=== PATIENT | male | born 1960 | race Caucasian/White ===

== ENCOUNTER → 2017-12-09 | Outpatient (CLI) | payer OTHER ==
[~2017-12-09] MED LIST: GASTROGRAFIN SOLUTION 30ML (Q9963) As Ordered; GLUCAGON FOR INJ 1 MG VIAL (J1610) As Ordered; ISOVUE-370 76% 100ML VIAL (Q9967) As Ordered; VoLumen 0.1% SUSPENSION 450ML BOTTLE As Ordered
== END ==
LOC: M RAD 07:37
DX: K52.9 Noninfective gastroenteritis and colitis, unspecified (principal)

== ENCOUNTER 2017-12-19 08:07 | Day surgery (SDC) | payer OTHER ==
[2017-12-19] MEDS: NS 1,000 ML IV (09:23)
[2017-12-19] MEDS ORDERED: PROPOFOL 200 MG/20 ML VIAL As Ordered ×2 (09:43→10:06)
[2017-12-19] MEDS ORDERED: LIDOCAINE 2% INJ 100 MG/5 ML SDV (FOR ANES.) As Ordered (09:43)
[2017-12-19 11:00] LABS: BEDSIDE GLUCOSE 89 MG/DL (70-105)
== END 2017-12-19 11:16 | disposition home or self-care (01) ==
LOC: M OPP 08:07
DX: R19.4 Change in bowel habit (principal); K50.90 Crohn's disease, unspecified, without complications; D12.3 Benign neoplasm of transverse colon; D12.4 Benign neoplasm of descending colon; D12.2 Benign neoplasm of ascending colon; D12.0 Benign neoplasm of cecum; D12.5 Benign neoplasm of sigmoid colon; R10.13 Epigastric pain; R12 Heartburn; K22.8 Other specified diseases of esophagus; E11.9 Type 2 diabetes mellitus without complications; K86.9 Disease of pancreas, unspecified; K21.9 Gastro-esophageal reflux disease without esophagitis; M19.90 Unspecified osteoarthritis, unspecified site; M54.2 Cervicalgia; Z79.899 Other long term (current) drug therapy; Z79.84 Long term (current) use of oral hypoglycemic drugs
CPT/HCPCS: 45385

== ENCOUNTER 2019-04-01 07:53 | Day surgery (SDC) | payer OTHER ==
[~2019-04-01] VITALS: Ht 177.8 cm; Wt 91.6 kg
[~2019-04-01 07:53] MED LIST changes: +ATOR1TAB21 PO; +FARX1TAB3; -GASTROGRAFIN SOLUTION 30ML (Q9963) As Ordered; +GLIM2TAB PO; -GLUCAGON FOR INJ 1 MG VIAL (J1610) As Ordered; -ISOVUE-370 76% 100ML VIAL (Q9967) As Ordered; +JANU50TA25 PO; +JARD1TAB3 PO; +LIDOCAINE 2% INJ 100 MG/5 ML SDV (FOR ANES.) As Ordered ONE; +LISI-542 PO; +PANT40TA3 PO; +PROPOFOL 200 MG/20 ML VIAL As Ordered ONE; +SUCR1TAB56; +TRUL0.5I INJ; -VoLumen 0.1% SUSPENSION 450ML BOTTLE As Ordered
[2019-04-01] MEDS ORDERED: NS 1,000 ML IV ONE (08:15)
--- NOTE | 2019-04-01 09:35 | ROOR ---
Patient Name: Ever Fay Procedure Date: 04/01/2019 8:47 AM Date of : 1960 Age: 58 Room: [facility] Gender: Male Note Status: Finalized Procedure: Colonoscopy Indications: High risk colon cancer surveillance: Personal history of colonic polyps, Surveillance: History of numerous (> 10) adenomas on last colonoscopy (< 3 yrs) Providers: Kem MEJIA MD Referring MD: GUNJAN BARNES MD Requesting Provider: Medicines: Monitored Anesthesia Care Complications: No immediate complications. Procedure: Pre-Anesthesia Assessment: - The heart rate, respiratory rate, oxygen saturations, blood pressure, adequacy of pulmonary ventilation, and response to care were monitored throughout the procedure. The Colonoscope was introduced through the anus and advanced to the cecum, identified by appendiceal orifice and ileocecal valve. The colonoscopy was performed without difficulty. The patient tolerated the procedure well. The quality of the bowel preparation was adequate. Findings: The perianal and digital rectal examinations were normal. Three sessile polyps were found in the ascending colon and cecum. The polyps were 3 to 5 mm in size. These polyps were removed with a cold snare. Resection and retrieval were complete. Three semi-sessile polyps were found in the descending colon and splenic flexure. The polyps were 5 to 8 mm in size. These polyps were removed with a cold snare. Resection and retrieval were complete. To prevent bleeding after the polypectomy, two hemostatic clips were successfully placed. There was no bleeding at the end of the procedure. Two sessile polyps were found in the sigmoid colon. The polyps were 3 to 5 mm in size. These polyps were removed with a cold snare. Resection and retrieval were complete. Small Internal Hemorrhoids. The exam was otherwise without abnormality on direct and retroflexion views. Impression: - Three 3 to 5 mm polyps in the ascending colon and in the cecum, removed with a cold snare. Resected and retrieved. - Three 5 to 8 mm polyps in the descending colon and at the splenic flexure, removed with a cold snare. Resected and retrieved. Clips were placed. - Two 3 to 5 mm polyps in the sigmoid colon, removed with a cold snare. Resected and retrieved. - Small Internal Hemorrhoids. - The examination was otherwise normal on direct and retroflexion views. Recommendation: - Repeat colonoscopy in 3 years for surveillance. - No ibuprofen, naproxen, or other non-steroidal anti-inflammatory drugs for 10 days after polyp removal. Kem Mejia MD Kem MEJIA MD 04/01/2019 9:35:03 AM Electronically signed by Kem MEJIA MD Number of Addenda: 0 Note Initiated On: 04/01/2019 8:47 AM Estimated Blood Loss: Estimated blood loss: none.
[2019-04-01 10:11] VITALS: BP 118/72
== END 2019-04-01 10:00 | disposition home or self-care (01) ==
LOC: M OPP 07:53
PROVIDERS: ATTEND Internal Medicine Gastroenterology
DX: Z86.010 Personal history of colon polyps (principal); Z80.0 Family history of malignant neoplasm of digestive organs; Z09 Encounter for follow-up examination after completed treatment for conditions other than malignant neoplasm; D12.0 Benign neoplasm of cecum; D12.4 Benign neoplasm of descending colon; D12.3 Benign neoplasm of transverse colon; K63.5 Polyp of colon; K64.8 Other hemorrhoids; Z79.84 Long term (current) use of oral hypoglycemic drugs; Z79.899 Other long term (current) drug therapy

== ENCOUNTER → 2019-11-11 | Outpatient (CLI) | payer OTHER ==
[~2019-11-11] MED LIST changes: -GLIM2TAB PO; +GLIM2TAB4 PO; -LIDOCAINE 2% INJ 100 MG/5 ML SDV (FOR ANES.) As Ordered ONE; -PROPOFOL 200 MG/20 ML VIAL As Ordered ONE
--- NOTE | 2019-11-11 14:49 | REP ---
REASON: Abdominal pain. PRIORS: None. FINDINGS: Supine and upright views of the abdomen show the intestinal gas pattern to be nonspecific. Gas and stool is seen throughout the colon within the rectosigmoid region. The organ silhouettes insofar as delineated appear unremarkable. No abdominal calcific densities are seen within the abdomen or pelvis. The accompanying single frontal view of the chest shows no free subdiaphragmatic air, cardiomegaly, infiltrates or effusions. There is a moderate of content seen within the colon. Degenerative changes are seen involving the spine and hips. IMPRESSION: Nonspecific intestinal gas pattern. Electronically Signed by Alejandro Vazquez DO 11/11/2019 04:24 P
== END ==
LOC: M RAD 13:47
PROVIDERS: ATTEND Physician Assistant Medical
DX: R10.33 Periumbilical pain (principal)

== ENCOUNTER → 2019-11-13 | Outpatient (REF) | payer OTHER | LOC: M LAB REF 11:00 | PROVIDERS: ATTEND Physician Assistant Medical | DX: R19.7 Diarrhea, unspecified (principal) ==

== ENCOUNTER → 2019-12-20 | Outpatient (REF) | payer OTHER | LOC: M LAB REF 08:38 | PROVIDERS: ATTEND Physician Assistant Medical | DX: R19.7 Diarrhea, unspecified (principal) ==

== ENCOUNTER → 2020-04-30 | Outpatient (REF) | payer OTHER ==
[~2020-04-30] MED LIST changes: +PANT40TA29 PO; -PANT40TA3 PO
== END ==
LOC: M LAB REF 11:39
PROVIDERS: ATTEND Physician Assistant Medical
DX: R19.8 Other specified symptoms and signs involving the digestive system and abdomen (principal)

== ENCOUNTER 2020-06-07 13:59 | Emergency (ER) | payer OTHER ==
[~2020-06-07] VITALS: Ht 180.3 cm; Wt 91.3 kg
[2020-06-07] MEDS ORDERED: NS 1,000 ML IV ONE (14:30)
[2020-06-07 14:55] LABS: BASO % 0.6 % (0.0-1.0); EOS # 0.2 10^3/uL (0.0-0.5); EOS % 2.2 % (0.0-3.0); HEMATOCRIT 45.8 % (42.0-52.0); HEMOGLOBIN 15.2 g/dl (13.5-17.5); LYMPH # 1.7 10^3/uL (1.5-5.0); LYMPH % 23.5 % (24.0-44.0); MEAN CORPUSCULAR HEMOGLOBIN 28.7 pg (27.0-33.0); MEAN CORPUSCULAR HGB CONC 33.2 g/dl (32.0-36.5); MEAN CORPUSCULAR VOLUME 86.4 fl (80.0-96.0); MONO % 13.5 % (0.0-5.0); NEUTROPHILS # 4.3 10^3/uL (1.5-8.5); NEUTROPHILS % 59.9 % (36.0-66.0); PLATELET COUNT, AUTOMATED 310 10^3/uL (150-450); WHITE BLOOD COUNT 7.2 10^3/uL (4.0-10.0)
[2020-06-07] MEDS ORDERED: GASTROGRAFIN SOLUTION 30ML PO SCH (15:00)
[2020-06-07 15:14] LABS: ERYTHROCYTE SEDIMENTATION RATE 10 mm/hr (0-20)
[2020-06-07 15:28] LABS: ALBUMIN 3.9 GM/DL (3.2-5.2); ALT/SGPT 33 U/L (12-78); AMYLASE 49 U/L (25-115); BILIRUBIN,DIRECT 0.1 MG/DL (0.0-0.2); BILIRUBIN,TOTAL 0.5 MG/DL (0.2-1.0); BLOOD UREA NITROGEN 13 MG/DL (7-18); C REACTIVE PROTEIN QUANTITATIV 2.27 MG/DL (0.00-0.30); CALCIUM LEVEL 9.3 MG/DL (8.5-10.1); CARBON DIOXIDE LEVEL 25 MEQ/L (21-32); CHLORIDE LEVEL 104 MEQ/L (98-107); CREATININE FOR GFR 0.72 MG/DL (0.70-1.30); FREE T4 1.45 NG/DL (0.76-1.46); GLOMERULAR FILTRATION RATE > 60.0 (>56); GLUCOSE, FASTING 184 MG/DL (70-100); LIPASE 127 U/L (73-393); POTASSIUM SERUM 3.9 MEQ/L (3.5-5.1); SODIUM LEVEL 135 MEQ/L (136-145); THYROID STIMULATING HORMONE 0.451 uIU/ML (0.358-3.740); TOTAL PROTEIN 7.2 GM/DL (6.4-8.2)
[2020-06-07] MEDS ORDERED: ISOVUE-370 76% 100ML VIAL As Ordered ONE (16:14)
--- NOTE | 2020-06-07 16:59 | REP ---
INDICATION: diffuse abd pain, diarrhea. COMPARISON: 12/09/2017 enterography TECHNIQUE: Oral Gastrografin mixture per our protocol and bolus of 100 mL Isovue 370 scanning through the abdomen and pelvis with coronal and sagittal reconstructions. FINDINGS: CT abdomen: Lung bases are clear. Heart is not enlarged there is no pericardial thickening or effusion. There is no hepatosplenomegaly, focal hepatic or splenic lesion or biliary dilatation. There are few calcifications in the spleen from old granulomatous disease. Gallbladder without calcified stone or mass. Pancreas is unremarkable. The adrenal glands are also normal. Kidneys show function in a symmetric fashion with enhancement. No mass, cyst, stone or hydronephrosis. There is no hydroureter or ureteral stone. Stomach shows retained food and oral contrast but no mass. The abdominal portion of the colon shows a stool throughout without colitis, diverticulitis, stricture or mass. There is a retrocecal appendix which is normal. No inflammatory change seen some mild hyperdensity within it suggesting an appendicolith. No aortic aneurysm or dissection. No periaortic, retroperitoneal or mesenteric pathologic sized lymphadenopathy. Small bowel loops are without dilatation. Oral contrast seen to the proximal the ileum. Some nonspecific thickening of bowel wall of the proximal to mid jejunum. No mesenteric edema. Bone windows show marginal osteophytes throughout lower thoracic and lumbar spine without compression deformity or destructive lesion there is some facet arthropathy in the lower lumbar spine. Visualized lower ribs were intact. No destructive lesion. CT pelvis: The SI joints are partially fused along much of their course. There are marginal osteophytes at the acetabular roof are fairly prominent. Rim osteophyte on the femoral head is seen but small. The iliac bones acetabula E and ischia were otherwise unremarkable. No evidence of fracture AVN of the hips. The distal left colon sigmoid and rectum are without any inflammatory changes. I would note that the sigmoid colon extends up well into the right upper quadrant on to just at the lower pole of the right kidney no colitis or diverticulitis. No stricture or mass. Prostate not grossly enlarged. Bladder well distended. Kidneys show no hydronephrosis and there is no hydroureter. No renal, ureteral or bladder stone. The distal small bowel loops show some thickening of the wall of the and in mucosal enhancement of the distal and terminal ileum which could certainly reflect underlying Crohn disease indicated by history from a previous CT no perforation or abscess on lung window review of all CT slices in the abdomen and pelvis. No ventral or inguinal hernia nor pathologic sized inguinal adenopathy. IMPRESSION: 1. Some nonspecific thickening bowel wall of the distal and terminal ileum without inflammatory changes in the adjacent fat, perforation or abscess. Findings certainly could reflect some mild Crohn disease. 2. Proximal small-bowel loops of jejunum showed nonspecific mild wall thickening in the left upper quadrant. No other significant or acute finding. Appendix is seen and normal, it is retrocecal. <Electronically signed by Guy Mcneal > 06/07/20 [id number]
[2020-06-07 18:25] VITALS: BP 115/71
--- NOTE | 2020-06-12 10:27 | ED PDOC ---
Post-Departure Follow-Up ct abd/p faxed to dr valadez for fu Pro Mcdonald MD Jun 12, 2020 10:27
== END 2020-06-07 18:29 | disposition home or self-care (01) ==
LOC: M ED 13:59
DX: K63.89 Other specified diseases of intestine (principal); E11.9 Type 2 diabetes mellitus without complications; E78.5 Hyperlipidemia, unspecified; K22.70 Barrett's esophagus without dysplasia; E66.9 Obesity, unspecified; Z79.899 Other long term (current) drug therapy
CPT/HCPCS: 36415; 74177; 80048; 80076; 82150; 83605; 83690; 83993; 84439; 84443; 85025; 85652; 86140; 87507; 96360; 99284; Q9963; Q9967

== ENCOUNTER → 2020-07-05 | Outpatient (CLI) | payer OTHER ==
--- NOTE | 2020-07-05 16:43 | REP ---
INDICATION: FOREIGN BODY IN SM INTESTINE. COMPARISON: Acute abdominal series dated 11/11/2019. TECHNIQUE: Supine and upright views of the abdomen, two views. FINDINGS: There is a radiopaque foreign body in the midline of the pelvis having a rectangular shape on plain films measuring 2.0 by 1.2 cm. I cannot determine whether this is in a large bowel loop or a small bowel loop. There is no bowel distention or obstruction. No free subdiaphragmatic air is identified on the upright view. Skeletal structures and soft tissues are otherwise unremarkable. IMPRESSION: Radiopaque foreign body in the midline of the pelvis. <Electronically signed by Tripp Jimenez > 07/05/20 [id number]
== END ==
LOC: M RAD 13:29
PROVIDERS: ATTEND Physician Assistant Medical
DX: T18.3XXA Foreign body in small intestine, initial encounter (principal)

== ENCOUNTER → 2020-07-07 | Outpatient (CLI) | payer OTHER ==
--- NOTE | 2020-07-07 10:36 | REP ---
INDICATION: FOREIGN BODY IN SMALL INTESTINE, SUBSEQUENT ENCOUNTER. An Agile patency capsule was ingested on 04 July 2020. This was still visible on the 2019 study. COMPARISON: Comparison study 05 July 2020.. TECHNIQUE: Two views. FINDINGS: The Agile patency capsule is no longer visible. Bowel gas pattern is unremarkable with formed stool in the ascending and descending colon. Psoas margins are intact. No mass, organomegaly, or pathologic calcification seen. IMPRESSION: The Agile patency capsule which was noted on the previous radiograph has passed in the interval. It is no longer visible. <Electronically signed by Aleksandar Mathews > 07/07/20 [id number]
== END ==
LOC: M RAD 10:04
PROVIDERS: ATTEND Physician Assistant Medical
DX: T18.3XXD Foreign body in small intestine, subsequent encounter (principal)

== ENCOUNTER → 2020-07-18 | Outpatient (CLI) | payer OTHER ==
[~2020-07-18] MED LIST changes: +GLUCAGON INJ 1MG VIAL As Ordered ONE; +ISOVUE-370 76% 100ML VIAL As Ordered ONE; +VoLumen 0.1% SUSPENSION 450ML BOTTLE As Ordered ONE
--- NOTE | 2020-07-18 15:15 | REP ---
INDICATION: ABN FINDINGS DIAG IMAGING F/U CT ABD PAIN DIARRHEA COMPARISON: 06/07/2020 TECHNIQUE: Axial contrast-enhanced images from the lung bases to the pubic symphysis with images obtained in arterial and portal venous phases of enhancement. Low-density oral contrast material was administered prior to imaging. Coronal and sagittal reformations were obtained. 100 cc Isovue 370 intravenous contrast material administered without complication. FINDINGS: The enteric system including stomach, small, and large bowel appears normal. No enteric or colonic wall thickening, pathologic abnormalities, inflammatory stranding, stricture/stenosis, obstruction or perforation is appreciated. No ascites. No significant adenopathy. Liver, spleen, pancreas, gallbladder, bilateral adrenal glands and kidneys are normal. Pelvis demonstrates normal bladder and age-appropriate prostate/seminal vesicles. No ascites. No free air. No intraperitoneal or retroperitoneal adenopathy. Abdominal aorta demonstrates atherosclerotic changes without aneurysm or dissection. Musculoskeletal structures demonstrate age-related changes without acute osseous abnormality. Lung bases are clear. IMPRESSION: 1. Normal appearance to the enteric system. No evidence for Crohn's disease or inflammatory bowel disease based on current examination. 2. No acute abdominopelvic pathology appreciated <Electronically signed by Daniel Molina > 07/18/20 [id number]
== END ==
LOC: M RAD 13:13
PROVIDERS: ATTEND Physician Assistant Medical
DX: R93.3 Abnormal findings on diagnostic imaging of other parts of digestive tract (principal); R10.84 Generalized abdominal pain; R19.7 Diarrhea, unspecified
CPT/HCPCS: 74177; J1610; Q9967

== ENCOUNTER 2021-07-17 23:58 | Observation (INO) | payer OTHER ==
[~2021-07-17] VITALS: Ht 172.7 cm; Wt 81.6 kg
[~2021-07-17 23:58] MED LIST changes: -GLUCAGON INJ 1MG VIAL As Ordered ONE; -ISOVUE-370 76% 100ML VIAL As Ordered ONE; -LISI-542 PO; +LISI5TAB11 PO; -VoLumen 0.1% SUSPENSION 450ML BOTTLE As Ordered ONE
[2021-07-18] VITALS (9 sets, daily range): BP systolic 102–136; BP diastolic 64–81; O2SAT 96–97
[2021-07-18 00:26] LABS: BASO # 0.1 10^3/uL (0.0-0.2); BASO % 0.4 % (0.0-1.0); EOS # 0.4 10^3/uL (0.0-0.5); EOS % 2.5 % (0.0-3.0); HEMATOCRIT 43.9 % (42.0-52.0); HEMOGLOBIN 14.8 g/dl (13.5-17.5); LYMPH # 2.2 10^3/uL (1.5-5.0); LYMPH % 14.1 % (24.0-44.0); MEAN CORPUSCULAR HEMOGLOBIN 29.2 pg (27.0-33.0); MEAN CORPUSCULAR HGB CONC 33.7 g/dl (32.0-36.5); MEAN CORPUSCULAR VOLUME 86.6 fl (80.0-96.0); MONO # 1.6 10^3/uL (0.0-0.8); MONO % 10.4 % (2.0-8.0); NEUTROPHILS # 11.3 10^3/uL (1.5-8.5); NEUTROPHILS % 72.1 % (36.0-66.0); PLATELET COUNT, AUTOMATED 393 10^3/uL (150-450); RED BLOOD COUNT 5.07 10^6/uL (4.30-6.10); WHITE BLOOD COUNT 15.7 10^3/uL (4.0-10.0)
[2021-07-18 01:01] LABS: CK-MB VALUE MASS 1.4 NG/ML (<3.6); MB/CK RELATIVE INDEX 2.37 (< OR =4)
[2021-07-18 01:08] LABS: ALBUMIN 3.7 GM/DL (3.2-5.2); ALT/SGPT 41 U/L (12-78); BILIRUBIN,DIRECT < 0.1 MG/DL (0.0-0.2); BILIRUBIN,TOTAL 0.4 MG/DL (0.2-1.0); BLOOD UREA NITROGEN 18 MG/DL (7-18); CALCIUM LEVEL 8.8 MG/DL (8.8-10.2); CARBON DIOXIDE LEVEL 25 MEQ/L (21-32); CHLORIDE LEVEL 102 MEQ/L (98-107); CREATININE FOR GFR 0.82 MG/DL (0.70-1.30); GLOMERULAR FILTRATION RATE > 60.0 (>49); GLUCOSE, FASTING 315 MG/DL (70-100); LIPASE 183 U/L (73-393); NT-PRO BNP 226 PG/ML (<125); POTASSIUM SERUM 4.1 MEQ/L (3.5-5.1); SODIUM LEVEL 136 MEQ/L (136-145); TOTAL PROTEIN 7.2 GM/DL (6.4-8.2)
[2021-07-18] MEDS ORDERED: ISOVUE-370 76% 100ML VIAL As Ordered ONE (01:26)
[2021-07-18 03:06] LABS: CK-MB VALUE MASS 1.1 NG/ML (<3.6); MB/CK RELATIVE INDEX 1.67 (< OR =4)
[2021-07-18] MEDS ORDERED: GLUCOSE 4GM CHEW TABLET PO PRN (03:20)
[2021-07-18] MEDS ORDERED: DEXTROSE 50% 50 ML SYRINGE IV PRN (03:20)
[2021-07-18] MEDS ORDERED: HYDROMORPHONE HCL 0.5 MG/ 0.5 ML SYRINGE (J1170 PER 1) IV PRN (03:20)
[2021-07-18] MEDS ORDERED: GLUCAGON INJ 1MG VIAL SC PRN (03:20)
[2021-07-18] MEDS ORDERED: POTA1TAB14 PO (04:36)
[2021-07-18] MEDS ORDERED: NEUR100C PO (04:36)
[2021-07-18] MEDS ORDERED: DOCU100C16 PO (04:36)
[2021-07-18] MEDS ORDERED: FOLI1TAB11 PO (04:36)
[2021-07-18] MEDS ORDERED: MULT400T10 PO (04:36)
[2021-07-18] MEDS ORDERED: ATOR80TA59 PO (04:36)
[2021-07-18] MEDS ORDERED: TRAM50TA2 PO (04:36)
[2021-07-18] MEDS ORDERED: GLIM4TAB5 PO (04:36)
[2021-07-18] MEDS ORDERED: METO1TAB87 PO (04:36)
[2021-07-18] MEDS ORDERED: FERR32TA PO (04:36)
[2021-07-18] MEDS ORDERED: LISI2.5T9 PO (04:36)
[2021-07-18] MEDS ORDERED: TRUL0.5I SC (04:36)
[2021-07-18] MEDS ORDERED: ACET-907 PO (04:36)
[2021-07-18] MEDS ORDERED: HOME MED LIST COMPLETE! XX SCH (04:40)
[2021-07-18 04:44] LABS: RSV AMPLIFICATION NEGATIVE (NEGATIVE)
[2021-07-18] MEDS: HEPARIN SOD (PORCINE) 5000UNITS/ML 1ML VIAL/SYRINGE SC SCH ×3 (05:39→21:07)
[2021-07-18] MEDS ORDERED: FLUBLOK(EGG FREE)(QUAD)INFLUENZA VACC 0.5ML SYRINGE 18YRS & OLDER IM SCH (06:15)
[2021-07-18] MEDS: HumaLOG INSULIN (NovoLOG) PER UNIT SC SCH ×4 (07:30→17:42)
[2021-07-18] MEDS: FOLIC ACID 1 MG TAB PO SCH (09:00)
[2021-07-18] MEDS: METOPROLOL TART 12.5 MG PER 1/2 TAB PO SCH ×2 (09:00→21:08)
[2021-07-18] MEDS: LISINOPRIL *2.5 MG* TAB PO SCH (09:00)
[2021-07-18] MEDS: POTASSIUM CHLORIDE 10MEQ SR TABLET PO SCH (09:00)
[2021-07-18] MEDS ORDERED: PANTOPRAZOLE 40MG TAB (PROTONIX) PO SCH (09:00)
[2021-07-18] MEDS ORDERED: traMADol 50 MG TAB PO PRN (10:45)
[2021-07-18] MEDS ORDERED: ACETAMINOPHEN TAB 650MG DOSE (2X325MG) PO PRN (10:45)
[2021-07-18] MEDS ORDERED: IBUPROFEN 400MG TAB PO SCH (12:50)
[2021-07-18] MEDS: ATORVASTATIN 20 MG TAB PO SCH (13:08)
[2021-07-18] MEDS: FERROUS GLUCONATE 324 MG TAB PO SCH ×2 (13:10→21:08)
[2021-07-18] MEDS: DOCUSATE SODIUM 100MG CAPSULE PO SCH ×2 (13:10→21:08)
[2021-07-18] MEDS: GABAPENTIN 100 MG CAP PO SCH ×2 (13:10→21:08)
[2021-07-18] MEDS: IBUPROFEN 400MG TAB PO SCH ×2 (13:23→21:07)
[2021-07-18] MEDS ORDERED: HumaLOG INSULIN (NovoLOG) PER UNIT SC SCH (21:00)
[2021-07-18] MEDS: PANTOPRAZOLE 40MG TAB (PROTONIX) PO SCH (21:08)
[2021-07-19] VITALS (12 sets, daily range): BP systolic 111–127; BP diastolic 70; O2SAT 78–97
[2021-07-19] MEDS: IBUPROFEN 400MG TAB PO SCH (05:40)
[2021-07-19] MEDS: HEPARIN SOD (PORCINE) 5000UNITS/ML 1ML VIAL/SYRINGE SC SCH (05:40)
[2021-07-19 05:47] LABS: HEMATOCRIT 41.4 % (42.0-52.0); HEMOGLOBIN 13.5 g/dl (13.5-17.5); MEAN CORPUSCULAR HEMOGLOBIN 28.8 pg (27.0-33.0); MEAN CORPUSCULAR HGB CONC 32.6 g/dl (32.0-36.5); MEAN CORPUSCULAR VOLUME 88.3 fl (80.0-96.0); PLATELET COUNT, AUTOMATED 292 10^3/uL (150-450); RED BLOOD COUNT 4.69 10^6/uL (4.30-6.10); WHITE BLOOD COUNT 9.4 10^3/uL (4.0-10.0)
[2021-07-19 06:08] LABS: BLOOD UREA NITROGEN 17 MG/DL (7-18); CALCIUM LEVEL 8.6 MG/DL (8.8-10.2); CARBON DIOXIDE LEVEL 25 MEQ/L (21-32); CHLORIDE LEVEL 108 MEQ/L (98-107); CREATININE FOR GFR 0.51 MG/DL (0.70-1.30); GLOMERULAR FILTRATION RATE > 60.0 (>49); GLUCOSE, FASTING 154 MG/DL (70-100); MAGNESIUM LEVEL 1.9 MG/DL (1.8-2.4); POTASSIUM SERUM 4.1 MEQ/L (3.5-5.1); SODIUM LEVEL 139 MEQ/L (136-145)
[2021-07-19] MEDS: GABAPENTIN 100 MG CAP PO SCH (09:20)
[2021-07-19] MEDS: ATORVASTATIN 20 MG TAB PO SCH (09:20)
[2021-07-19] MEDS: FERROUS GLUCONATE 324 MG TAB PO SCH (09:20)
[2021-07-19] MEDS: DOCUSATE SODIUM 100MG CAPSULE PO SCH (09:20)
[2021-07-19] MEDS: METOPROLOL TART 12.5 MG PER 1/2 TAB PO SCH (09:21)
[2021-07-19] MEDS: PANTOPRAZOLE 40MG TAB (PROTONIX) PO SCH (09:22)
[2021-07-19] MEDS: LISINOPRIL *2.5 MG* TAB PO SCH (09:22)
[2021-07-19] MEDS: HumaLOG INSULIN (NovoLOG) PER UNIT SC SCH (09:23)
[2021-07-19] MEDS: FOLIC ACID 1 MG TAB PO SCH (09:23)
[2021-07-19] MEDS: POTASSIUM CHLORIDE 10MEQ SR TABLET PO SCH (09:23)
[2021-07-19] MEDS ORDERED: IBUP-1114 PO (09:53)
[2021-07-19] MEDS ORDERED: PANT40TA29 PO (09:53)
== END 2021-07-19 11:58 | disposition home or self-care (01) ==
LOC: M ED 23:58 → M ED INP 23:59 → M PCU 07-18 05:29
PROVIDERS: ADMIT Internal Medicine; ATTEND Internal Medicine
DX: I97.0 Postcardiotomy syndrome (principal); I25.10 Atherosclerotic heart disease of native coronary artery without angina pectoris; Z95.5 Presence of coronary angioplasty implant and graft; E11.9 Type 2 diabetes mellitus without complications; I11.9 Hypertensive heart disease without heart failure; E78.5 Hyperlipidemia, unspecified; J90 Pleural effusion, not elsewhere classified; D72.819 Decreased white blood cell count, unspecified; R70.0 Elevated erythrocyte sedimentation rate; R79.82 Elevated C-reactive protein (CRP); Z79.899 Other long term (current) drug therapy; Z79.84 Long term (current) use of oral hypoglycemic drugs
CPT/HCPCS: 36415; 71045; 71275; 80048; 80076; 82550; 82553; 83690; 83735; 83880; 84443; 84484; 85025; 85027; 85652; 86140; 87631; 90682; 93005; 93041; 93306; 94760; 96372; 99285; J1644; Q9967

== ENCOUNTER → 2022-05-23 | Outpatient (CLI) | payer OTHER ==
[~2022-05-23] MED LIST changes: +ACET-907 PO; +ASPI-1 PO; +ATOR80TA59 PO; +DOCU100C16 PO; +FERR32TA PO; +FOLI1TAB11 PO; +GLIM4TAB5 PO; +HUMA100I5; +IBUP-1114 PO; +LISI2.5T9 PO; +METO1TAB87 PO; +MULT400T10 PO; +NEUR100C PO; +POTA1TAB14 PO; +TRAM50TA2 PO; +TRUL0.5I SC; +VITA500C24 PO
== END ==
LOC: M LABSMTC 09:47
PROVIDERS: ATTEND Anesthesiology
DX: Z01.812 Encounter for preprocedural laboratory examination (principal); Z11.52 Encounter for screening for COVID-19

== ENCOUNTER 2022-05-28 10:42 | Day surgery (SDC) | payer OTHER ==
[~2022-05-28] VITALS: Ht 177.8 cm; Wt 86.6 kg
[~2022-05-28 10:42] MED LIST changes: +NS 1,000 ML IV ONE
[2022-05-28] MEDS ORDERED: propofoL 200 MG/20 ML VIAL As Ordered ONE (13:11)
[2022-05-28] MEDS ORDERED: LIDOCAINE 2% 100MG/5ML SDV (FOR ANES.) As Ordered ONE (13:11)
[2022-05-28 13:25] VITALS: BP 125/77
== END 2022-05-28 13:35 | disposition home or self-care (01) ==
LOC: M OPP 10:42
PROVIDERS: ATTEND Internal Medicine Gastroenterology
DX: Z12.11 Encounter for screening for malignant neoplasm of colon (principal); Z86.010 Personal history of colon polyps; Z80.0 Family history of malignant neoplasm of digestive organs; D12.3 Benign neoplasm of transverse colon; D12.4 Benign neoplasm of descending colon; D12.5 Benign neoplasm of sigmoid colon; K64.8 Other hemorrhoids; K22.70 Barrett's esophagus without dysplasia; Z79.02 Long term (current) use of antithrombotics/antiplatelets; Z79.4 Long term (current) use of insulin; Z79.82 Long term (current) use of aspirin; Z79.899 Other long term (current) drug therapy; E11.9 Type 2 diabetes mellitus without complications; M19.90 Unspecified osteoarthritis, unspecified site; Z87.891 Personal history of nicotine dependence; Z80.1 Family history of malignant neoplasm of trachea, bronchus and lung

== ENCOUNTER 2024-05-07 15:13 | Emergency (ER) | payer OTHER ==
[~2024-05-07] VITALS: Ht 177.8 cm; Wt 77.8 kg
[~2024-05-07 15:13] MED LIST changes: -NS 1,000 ML IV ONE; +POTA-298 PO; -POTA1TAB14 PO
[2024-05-07] MEDS ORDERED: SEMA2PEN (15:32)
[2024-05-07 17:45] LABS: BASO % 0.5 % (0.0-1.0); EOS # 0.2 10^3/uL (0.0-0.5); EOS % 2.3 % (0.0-3.0); HEMATOCRIT 42.7 % (42.0-52.0); HEMOGLOBIN 14.5 g/dl (13.5-17.5); LYMPH # 2.4 10^3/uL (1.5-5.0); LYMPH % 27.8 % (24.0-44.0); MEAN CORPUSCULAR HEMOGLOBIN 31.3 pg (27.0-33.0); MEAN CORPUSCULAR VOLUME 92.2 fl (80.0-96.0); MONO # 0.8 10^3/uL (0.0-0.8); MONO % 9.7 % (2.0-8.0); NEUTROPHILS # 5.1 10^3/uL (1.5-8.5); NEUTROPHILS % 59.1 % (36.0-66.0); PLATELET COUNT, AUTOMATED 394 10^3/uL (150-450); RED BLOOD COUNT 4.63 10^6/uL (4.30-6.10); WHITE BLOOD COUNT 8.6 10^3/uL (4.0-10.0)
[2024-05-07 18:10] LABS: LIPASE 43 U/L (12-53)
[2024-05-07 18:16] LABS: ALBUMIN 4.1 G/DL (3.2-5.2); ALKALINE PHOSPHATASE 85 U/L (46-116); ALT/SGPT 39 U/L (7.0-40); AST/SGOT 18 U/L (<34); BILIRUBIN,DIRECT 0.2 MG/DL (<0.4); BILIRUBIN,TOTAL 0.6 MG/DL (0.3-1.2)
[2024-05-07 19:30] LABS: CK-MB VALUE MASS < 1.0 NG/ML (<3.6)
[2024-05-07 19:31] LABS: CPK CREATINE PHOSPHOKINASE 43 U/L (46-171); MB/CK RELATIVE INDEX 2.32 (< OR =4)
[2024-05-07 19:40] LABS: CK-MB VALUE MASS < 1.0 NG/ML (<3.6)
[2024-05-07 19:49] LABS: CPK CREATINE PHOSPHOKINASE 45 U/L (46-171); MB/CK RELATIVE INDEX 2.22 (< OR =4)
[2024-05-07] MEDS ORDERED: SIME1CAP4 PO (21:32)
[2024-05-07] MEDS ORDERED: MIRA3350 PO (21:32)
[2024-05-07 21:45] VITALS: BP 113/73; TEMP 97.6; O2SAT 97
== END 2024-05-07 21:45 | disposition home or self-care (01) ==
LOC: M ED 15:13
DX: K59.00 Constipation, unspecified (principal); R94.31 Abnormal electrocardiogram [ECG] [EKG]; E11.9 Type 2 diabetes mellitus without complications; I50.22 Chronic systolic (congestive) heart failure; K21.9 Gastro-esophageal reflux disease without esophagitis; I25.119 Atherosclerotic heart disease of native coronary artery with unspecified angina pectoris; Z87.891 Personal history of nicotine dependence; Z79.1 Long term (current) use of non-steroidal anti-inflammatories (NSAID); Z79.4 Long term (current) use of insulin; Z79.899 Other long term (current) drug therapy

== ENCOUNTER 2024-06-08 09:31 | Day surgery (SDC) | payer OTHER ==
[~2024-06-08] VITALS: Ht 177.8 cm; Wt 77.6 kg
[~2024-06-08 09:31] MED LIST changes: +BUDE10.7 IH; +LINZ145C PO; +MIRA3350 PO; +NS 250 ML IV ONE; +SEMA2PEN; +SIME1CAP4 PO; +THERTAB52 PO
[2024-06-08] MEDS ORDERED: LIDOCAINE 2% 100MG/5ML SDV (FOR ANES.) As Ordered ONE (12:04)
[2024-06-08] MEDS ORDERED: GLYCOPYRROLATE INJ 0.2 MG/ML 2 ML VIAL As Ordered ONE (12:04)
[2024-06-08] MEDS ORDERED: propofoL 200 MG/20 ML VIAL As Ordered ONE (12:04)
[2024-06-08 12:25] VITALS: BP 101/66; TEMP 97; O2SAT 100
== END 2024-06-08 12:55 | disposition home or self-care (01) ==
LOC: M OPP 09:31
PROVIDERS: ATTEND Internal Medicine Gastroenterology
DX: K63.5 Polyp of colon (principal); Z86.0100 Personal history of colon polyps, unspecified; K64.8 Other hemorrhoids; K22.70 Barrett's esophagus without dysplasia; K22.89 Other specified disease of esophagus; E11.9 Type 2 diabetes mellitus without complications; K21.9 Gastro-esophageal reflux disease without esophagitis; M19.90 Unspecified osteoarthritis, unspecified site; J44.9 Chronic obstructive pulmonary disease, unspecified; Z87.891 Personal history of nicotine dependence; Z79.51 Long term (current) use of inhaled steroids; Z79.82 Long term (current) use of aspirin; Z79.84 Long term (current) use of oral hypoglycemic drugs; Z79.85 Long-term (current) use of injectable non-insulin antidiabetic drugs; Z79.899 Other long term (current) drug therapy; Z80.0 Family history of malignant neoplasm of digestive organs; Z80.1 Family history of malignant neoplasm of trachea, bronchus and lung
CPT/HCPCS: 43239; 45385; 88305; J1596

== ENCOUNTER → 2024-11-29 | Outpatient (CLI) | payer OTHER ==
[~2024-11-29] MED LIST changes: +E-Z-GAS II EFFERVESCENT PACKET (SODIUM BICARB./CITRIC ACID/SIMETHICONE) As Ordered ONE; +E-Z-HD 98% w/w 340GM SUSP BTL As Ordered ONE; +E-Z-PAQUE 96% w/w SUSP 176GM BTL As Ordered ONE; -NS 250 ML IV ONE
== END ==
LOC: M RAD 08:12
PROVIDERS: ATTEND Physician Assistant Medical
DX: R13.10 Dysphagia, unspecified (principal); K21.9 Gastro-esophageal reflux disease without esophagitis